=== PATIENT | female | born 1960 | race African-American/Black ===

== ENCOUNTER 2017-12-31 07:04 | Inpatient (IN) | payer OTHER ==
[~2017-12-31 07:04] MED LIST: CEFAZOLIN INJ 1 GM VIAL IV PRN; IBUPROFEN 800 MG in DEXTROSE 5%-WATER 250 ML IV PRN; IBUPROFEN 800 MG in NORMAL SALINE 250 ML IV PRN; LACTATED RINGERS 1000 ML IV PRN; LANSOPRAZOLE 15 MG TAB.RAP.DR PO PRN; LIDOCAINE 0.5% INJ-PF (5 MG/ML) 50 ML SDV SUBCUT PRN; OXYCODONE HCL SR 10 MG TABLET PO PRN; VANCOMYCIN HCL 1,000 MG in DEXTROSE 5%-WATER 250 ML IV PRN
[2017-12-31] MEDS ORDERED: LANSOPRAZOLE 15 MG TAB.RAP.DR ONE (07:15)
[2017-12-31] MEDS ORDERED: OXYCODONE HCL SR 10 MG TABLET PO ONE (07:15)
[2017-12-31] MEDS ORDERED: BUPIVACAINE HCL 0.25% /EPINEPHRINE INJ/PF 30 ML SDV ONE (07:20)
[2017-12-31 08:13] LABS: INTERNATIONAL RATION (INR) 0.89; PROTHROMBIN TIME 12.5 SEC (11.4-15.4)
[2017-12-31 08:14] LABS: PARTIAL THROMBOPLASTIN TIME 30.7 SEC (23.5-35.8)
[2017-12-31] MEDS ORDERED: FENTANYL CITRATE INJ/PF 250 MCG/5 ML AMPULE ONE (08:53)
[2017-12-31] MEDS ORDERED: MIDAZOLAM 2 MG/2 ML INJ ONE (08:53)
[2017-12-31] MEDS ORDERED: ONDANSETRON HCL INJ/PF 4 MG/2 ML SDV ONE (08:53)
[2017-12-31] MEDS ORDERED: PROPOFOL INJ 200 MG/20 ML VIAL IV ONE (08:54)
[2017-12-31] MEDS ORDERED: HYDROMORPHONE HCL INJ/PF 2 MG/ML AMPULE ONE (08:54)
[2017-12-31] MEDS ORDERED: CEFAZOLIN INJ 1 GM VIAL ONE (09:07)
[2017-12-31] MEDS ORDERED: PROMETHAZINE HCL INJ 25 MG/1 ML VIAL IV PRN (09:28)
[2017-12-31] MEDS ORDERED: DIPHENHYDRAMINE HCL 50 MG/ML VIAL IV PRN ×2 (09:28→10:29)
[2017-12-31] MEDS ORDERED: FENTANYL CITRATE INJ/PF 100 MCG/2 ML AMPUL IV PRN ×3 (09:28)
[2017-12-31] MEDS ORDERED: MEPERIDINE HCL/PF INJ 25 MG/1 ML DISP.SYRIN IV PRN (09:28)
--- NOTE | 2017-12-31 10:27 | Operative Report ---
Operative Report DATE OF SURGERY: 12/31/17 PREOPERATIVE DIAGNOSIS: Right knee arthritis OPERATION: Right knee arthroplasty SURGEON: BRIAN BEAL ANESTHESIA: GA TISSUE REMOVED OR ALTERED: Bone to pathology ESTIMATED BLOOD LOSS: 100 PROCEDURE: Implants used: Femur: [place] triathlon size 6 CR cementless femur Tibia: Size 5 cementless tibia Tibial liner: 9 mm CS insert Patella: 35 mm oval cementless patella Procedure with the patient supine on the operating table the right the limb is prepped and draped in a sterile fashion. The limb was elevated for exsanguination and the tourniquet inflated to 280 torr. A standard midline median parapatellar approach the knee is taken. Access is gained to the femoral canal through the intercondylar notch. Intramedullary alignment instrumentation used to resect 10 mm of distal femur in 5 of valgus. Sizing guide indicated a size 6 femur. Appropriate cutting jig is then used to fashion anterior posterior and chamfer cuts. A trial reduction femurs performed and this is judged to be adequate. Attention was next turned to the tibia. Using an extra medullary alignment system 9 millimeters was resected off the lateral tibial plateau. This is sized to a size 5 tibia. A trial reduction was now performed with a 6 femur and a 5 tibia using a 9 millimeters spacer. It is full extension and central patellofemoral tracking. The articular surface the patella was next resected using an oscillating saw. All trial implants were removed. The above implants are impacted into position.. the tourniquet was deflated hemostasis obtained the wound is then closed in layers using interrupted Vicryl followed by tristin. A sterile compressive dressing was applied and the patient returned to recovery room in satisfactory condition.
[2017-12-31] MEDS ORDERED: ACETAMINOPHEN 325 MG TABLET PO PRN (10:29)
[2017-12-31] MEDS ORDERED: OXYCODONE HCL IR 5 MG TABLET PO PRN (10:29)
[2017-12-31] MEDS ORDERED: MAG HYDROX/AL HYDROX/SIMETH SUSP 30 ML UDCUP PO PRN (10:29)
[2017-12-31] MEDS ORDERED: MORPHINE SULFATE 10 MG/ML INJ IV PRN ×4 (10:29)
[2017-12-31] MEDS ORDERED: RINGERS SOLUTION,LACTATED 1,000 ML IV PRN (10:29)
[2017-12-31] MEDS ORDERED: ONDANSETRON 4 MG TAB.RAPDIS PO PRN (10:29)
[2017-12-31] MEDS ORDERED: ONDANSETRON HCL INJ/PF 4 MG/2 ML SDV IV PRN (10:29)
[2017-12-31] MEDS ORDERED: ZOLPIDEM TARTRATE 5 MG TABLET PO PRN (10:29)
[2017-12-31] MEDS ORDERED: DEXTROSE 40% GEL 15 GM TUBE PO PRN (11:07)
[2017-12-31] MEDS ORDERED: GLUCAGON,HUMAN RECOMB 1 MG INJ IM PRN (11:07)
[2017-12-31] MEDS ORDERED: INSULIN LISPRO 100 UNIT/ML 3 ML VIAL SUBCUT PRN (11:07)
[2017-12-31] MEDS ORDERED: DEXTROSE 50%-WATER SYRINGE 12.5 GM/25 ML DOSE IV PRN (11:07)
[2017-12-31] MEDS ORDERED: DEXTROSE 40% GEL 15 GM TUBE X 2 PO PRN (11:07)
[2017-12-31] MEDS ORDERED: DEXTROSE 50%-WATER SYRINGE 25 GM/50 ML DOSE IV PRN (11:07)
[2017-12-31] MEDS: FENTANYL CITRATE INJ/PF 100 MCG/2 ML AMPUL ONE ×2 (11:08→11:15)
--- NOTE | 2017-12-31 11:37 | RADIOLOGY REPORT (SQ) ---
EXAM DESCRIPTION: KNEE RIGHT 2 VIEWS COMPLETED DATE/TIME: 12/31/2017 11:21 am REASON FOR STUDY: Post OP -Long Cassette in PACU M17.11 UNILATERAL PRIMARY OSTEOARTHRITIS, RIGHT KN EE COMPARISON: None. NUMBER OF VIEWS: 2 view(s). TECHNIQUE: Digital radiographic images of the right knee post-procedure. LIMITATIONS: None. FINDINGS: BONES: No worrisome or unexpected findings post-procedure. DEVICE: Patient is status post right total knee replacement. The prosthesis appears well seated in t he distal femur and proximal tibia in the projections obtained. SOFT TISSUES: No worrisome findings. Expected postoperative soft tissue changes. IMPRESSION: SATISFACTORY POSTOPERATIVE RIGHT KNEE. TECHNICAL DOCUMENTATION: JOB ID: [id number] [employer]- All Rights Reserved Reading location - IP/workstation name: [email or web address]
[2017-12-31] MEDS ORDERED: TRANEXAMIC ACID INJ/PF 1,000 MG/10 ML SDV IV ONE (11:48)
[2017-12-31] MEDS ORDERED: TRANEXAMIC ACID INJ/PF 1,000 MG/10 ML SDV IV SCH (12:00)
[2017-12-31] MEDS ORDERED: CLONIDINE HCL 0.2 MG TABLET PO SCH (14:00)
[2017-12-31] MEDS: IBUPROFEN 800 MG in DEXTROSE 5%-WATER 250 ML IV SCH ×2 (15:07→21:24)
[2017-12-31] MEDS: METFORMIN HCL 500 MG TABLET PO SCH (16:45)
[2017-12-31] MEDS: BUPROPION HCL 100 MG TABLET PO SCH ×2 (16:54→21:20)
[2017-12-31] MEDS: HYDRALAZINE HCL 50 MG TABLET PO SCH ×2 (17:07→21:21)
[2017-12-31] MEDS: SENNOSIDES/DOCUSATE 8.6-50 MG 1 EACH TABLET PO SCH (17:07)
[2017-12-31] MEDS ORDERED: DIPHENHYDRAMINE HCL 25 MG CAPSULE PO PRN (17:25)
[2017-12-31] MEDS ORDERED: CLONIDINE HCL 0.2 MG TABLET PO ONE (17:30)
[2017-12-31] MEDS ORDERED: HYDRALAZINE HCL 50 MG TABLET PO ONE (17:30)
[2017-12-31] MEDS ORDERED: (PENDING PHARMACY ID) (Gabapentin [Gabapentin] 800 MG) PO SCH (18:00)
[2017-12-31] MEDS: CLONIDINE HCL 0.2 MG TABLET PO SCH (21:21)
[2017-12-31] MEDS: OXYCODONE HCL SR 10 MG TABLET PO SCH (21:22)
[2017-12-31] MEDS: GABAPENTIN 400 MG CAPSULE PO SCH (21:22)
[2017-12-31] MEDS: METOPROLOL TARTRATE 50 MG TABLET PO SCH (21:22)
[2017-12-31] MEDS ORDERED: ATORVASTATIN CALCIUM 20 MG TABLET PO SCH (22:00)
[2017-12-31] MEDS ORDERED: VANCOMYCIN HCL 1,000 MG in DEXTROSE 5%-WATER 250 ML IV ONE (22:30)
[2018-01-01] MEDS: CLONIDINE HCL 0.2 MG TABLET PO SCH (05:23)
[2018-01-01] MEDS: HYDRALAZINE HCL 50 MG TABLET PO SCH (05:23)
[2018-01-01] MEDS: BUPROPION HCL 100 MG TABLET PO SCH (05:23)
[2018-01-01] MEDS: IBUPROFEN 800 MG in DEXTROSE 5%-WATER 250 ML IV SCH (05:24)
[2018-01-01] MEDS ORDERED: LANSOPRAZOLE 30 MG TAB.RAP.DR PO SCH (06:00)
[2018-01-01 06:41] LABS: HEMATOCRIT 27.3 % (36.0-47.0); HEMOGLOBIN 8.9 g/dL (12.0-15.5); MEAN CORPUSCULAR HEMOGLOBIN 28.7 pg (27.0-33.4); MEAN CORPUSCULAR HGB CONC 32.8 g/dL (32.0-36.0); MEAN CORPUSCULAR VOLUME 88 fl (80-97); PLATELET COUNT 106 10^3/uL (150-450); RED BLOOD COUNT 3.12 10^6/uL (3.72-5.28); RED CELL DISTRIBUTION WIDTH 13.8 % (11.5-14.0); WHITE BLOOD COUNT 7.3 10^3/uL (4.0-10.5)
[2018-01-01 07:15] LABS: ANION GAP 9 (5-19); BLOOD UREA NITROGEN 24 mg/dL (7-20); CALCIUM 8.7 mg/dL (8.4-10.2); CARBON DIOXIDE 25 mmol/L (22-30); CHLORIDE 101 mmol/L (98-107); GLUCOSE 195 mg/dL (75-110); POTASSIUM 4.6 mmol/L (3.6-5.0); SODIUM 135.3 mmol/L (137-145)
--- NOTE | 2018-01-01 07:43 | PDOC DISCHARGE SUMMARY ---
General - Admit/Disc Date/PCP Admission Date/Primary Care Provider: 12/31/17 07:04 [facility] Discharge Date: 01/01/18 - Discharge Diagnosis (1) Arthritis of right knee Is this a current diagnosis for this admission?: Yes - Additional Information Home Medications: Amitriptyline HCl [Elavil 50 mg Tablet] 50 mg PO HSP PRN 12/31/17 Amlodipine Besylate [Norvasc 10 mg Tablet] 10 mg PO DAILY 12/31/17 Atorvastatin Calcium [Lipitor 80 mg Tablet] 40 mg PO QHS 12/31/17 Fluoxetine HCl [Prozac] 10 mg PO DAILY 12/31/17 Glipizide [Glucotrol 10 mg Tablet] 10 mg PO BIDACBS 12/31/17 Liraglutide [Victoza 2-Jaleel] 0.3 ml SQ DAILY 12/31/17 Lisinopril/Hydrochlorothiazide [Lisinopril-Hctz 20-12.5 mg Tab] 2 tab PO DAILY 12/31/17 Metformin HCl [Glucophage 500 mg Tablet] 1,000 mg PO BID 12/31/17 Metoprolol Tartrate [Lopressor 100 mg Tablet] 100 mg PO Q12 12/31/17 History of Present Illness History of Present Illness: XIANG FU is a 57 year old female Patient is a 57-year-old black female with progressive right knee pain and functional disability second osteoarthritis. Patient is admitted for elective right knee arthroplasty. Hospital Course Hospital Course: Patient is admitted through the operating room where she undergoes uncomplicated right knee arthroplasty. She is returned to the floor in satisfactory condition is seen by physical therapy. She ambulates 150 feet on the day of surgery. Blood glucoses are well controlled with values of 182 293. Hematocrit postoperatively is 27.3%. Physical Exam Vital Signs: Temp Pulse Resp BP Pulse Ox 37.4 C 90 18 146/70 H 94 01/01/18 05:05 01/01/18 05:05 01/01/18 05:05 01/01/18 05:05 01/01/18 05:05 Intake & Output 12/31/17 01/01/18 01/02/18 06:59 06:59 06:59 Intake Total 4994 Output Total 2000 Balance 2994 Weight 87.54 kg General appearance: PRESENT: no acute distress, well-nourished Head exam: PRESENT: normocephalic Respiratory exam: PRESENT: unlabored Cardiovascular exam: PRESENT: RRR Pulses: PRESENT: +1 pedal pulses bilateral Vascular exam: PRESENT: normal capillary refill GI/Abdominal exam: PRESENT: soft Rectal exam: PRESENT: deferred Extremities exam: PRESENT: other - Compressive dressing is removed from the right lower extremity on postop day 1. The underlying op site is clean dry and intact. Distal neurovascular examination is intact. Neurological exam: PRESENT: alert, awake, oriented to person, oriented to place , oriented to time, oriented to situation. ABSENT: motor sensory deficit Psychiatric exam: PRESENT: appropriate affect, normal mood. ABSENT: homicidal ideation, suicidal ideation Skin exam: PRESENT: dry, intact, warm. ABSENT: cyanosis, rash Results Laboratory Results: 01/01/18 06:08 01/01/18 06:08 12/31/17 01/01/18 01/01/18 07:39 06:08 06:08 WBC 7.3 RBC 3.12 L Hgb 8.9 L Hct 27.3 L MCV 88 MCH 28.7 MCHC 32.8 RDW 13.8 Plt Count 106 L Sodium 135.3 L Potassium 4.6 Chloride 101 Carbon Dioxide 25 Anion Gap 9 BUN 24 H Creatinine 0.91 Est GFR ( Amer) > 60 Est GFR (Non-Af Amer) > 60 Glucose 134 H 195 H Calcium 8.7 Impressions: Knee X-Ray 12/31/17 10:30 IMPRESSION: SATISFACTORY POSTOPERATIVE RIGHT KNEE. Status: Imported from [facility] Qualifiers - * PATIENT BEING DISCHARGED WITH ANY OF THE FOLLOWING DIAGNOSIS: No VTE patient discharged on overlapping Therapy?: Yes Plan Discharge Plan: Patient be discharged home with home health services and DME. Follow-up with Dr. Jonatan Rai [place] for surgery in 2 weeks for staple removal.
[2018-01-01] MEDS: METFORMIN HCL 500 MG TABLET PO SCH (07:45)
[2018-01-01] MEDS: OXYCODONE HCL SR 10 MG TABLET PO SCH (09:16)
[2018-01-01] MEDS: SENNOSIDES/DOCUSATE 8.6-50 MG 1 EACH TABLET PO SCH (09:18)
[2018-01-01] MEDS: GABAPENTIN 400 MG CAPSULE PO SCH (09:18)
[2018-01-01] MEDS: METOPROLOL TARTRATE 50 MG TABLET PO SCH (09:18)
[2018-01-01] MEDS ORDERED: CLOPIDOGREL BISULFATE 75 MG TABLET PO SCH (10:00)
[2018-01-01] MEDS ORDERED: PRENATAL VITAMIN W DHA CAPSULE PO SCH (10:00)
[2018-01-01] MEDS ORDERED: ISOSORBIDE MONONITRATE 60 MG TAB.ER.24H PO SCH (10:00)
[2018-01-01] MEDS ORDERED: (PENDING PHARMACY ID) (Ferrous Sulfate [Ferrous Sulfate] 324 MG) PO SCH (10:00)
[2018-01-01] MEDS ORDERED: TRAZODONE HCL 50 MG TABLET PO SCH (10:00)
[2018-01-01] MEDS ORDERED: (PENDING PHARMACY ID) (Pravastatin Sodium [Pravastatin Sodium] 80 MG) PO SCH (10:00)
[2018-01-01] MEDS ORDERED: FERROUS SULFATE 325 MG TABLET PO SCH (10:00)
[2018-01-01 12:39] VITALS: BP 124/65
== END 2018-01-01 13:24 | disposition home health service (06) | DRG 470 ==
LOC: INOR 07:04 → 4S 12:05
PROVIDERS: ADMIT Orthopaedic Surgery; ATTEND Orthopaedic Surgery
PROC: 0SRC0JA Replacement of Right Knee Joint with Synthetic Substitute, Uncemented, Open Approach (ICD-10-PCS; principal; 2017-12-31 09:15)
DX: M17.11 Unilateral primary osteoarthritis, right knee (principal); E78.00 Pure hypercholesterolemia, unspecified; I10 Essential (primary) hypertension; F32.9 Major depressive disorder, single episode, unspecified; E11.40 Type 2 diabetes mellitus with diabetic neuropathy, unspecified; E61.1 Iron deficiency; Z79.899 Other long term (current) drug therapy; Z79.02 Long term (current) use of antithrombotics/antiplatelets; Z86.73 Personal history of transient ischemic attack (TIA), and cerebral infarction without residual deficits
CPT/HCPCS: 01402; 36415; 80048; 82947; 82962; 85027; 85610; 85730; 88305; 88311; 94799; C1713; C1776; J0690; J1170; J1741; J1815; J2250; J2270; J2405; J2704; J3010; J3370; J3490; J7050; J7060; J7120; S0119